=== PATIENT | female | born 1955 | race Caucasian/White ===

== ENCOUNTER → 2022-05-25 | Day surgery (SDC) | payer MEDICARE ==
[~2022-05-25] MED LIST: COZAAR 50MG TAB50 MG PO; FERROUS SULFAT325 M2 PO; HYDROXYZINE HCL10 MG PO; LORATADINE10 MG PO; TRAZODONE HCL150 MG PO
== END | disposition home or self-care (01) ==
LOC: OR 06:58
DX: K22.89 Other specified disease of esophagus (principal); I10 Essential (primary) hypertension; E66.3 Overweight; Z68.26 Body mass index [BMI] 26.0-26.9, adult; Z98.84 Bariatric surgery status; Z88.2 Allergy status to sulfonamides; Z88.8 Allergy status to other drugs, medicaments and biological substances; Z91.040 Latex allergy status
CPT/HCPCS: J2704; J7040